=== PATIENT | male | born 1945 | race Caucasian/White ===

== ENCOUNTER 2018-08-21 14:01 | Emergency (ER) | payer OTHER, MEDICAID ==
[~2018-08-21] VITALS: Ht 167.6 cm; Wt 81.6 kg
[2018-08-21 14:13] VITALS: BP 159/70
--- NOTE | 2018-08-21 14:13 | NUR ---
Patient ambulated to bed 3 with family. RN evaluating patient at bedside.
--- NOTE | 2018-08-21 14:20 | NUR ---
C/O FEELING WEAK, N/V STARTING TODAY. PT APPEARS PALE AND STATES HE HASN'T EATEN SINCE LAST NIGHT. 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 NO FACIAL DROOP NOTED. PT ALERT AND ANSWERING QUESTIONS APPROPRIATELY. DENIES FEVER & DIARRHEA. BOWEL SOUNDS ACTIVE X4, ABDOMEN SOFT,FLAT, NON TENDER. LBM 08/20/18. BED IN LOW POSITION, SON AT BEDSIDE.
--- NOTE | 2018-08-21 14:40 | NUR ---
PT PLACED ON BOOM MAN
[2018-08-21] MEDS ORDERED: MECLIZINE 25 MG TAB PO ONE (16:15)
--- NOTE | 2018-08-21 16:59 | NUR ---
PT RESTING IN BED, NO NEW NEEDS AT THIS TIME
[2018-08-21 17:07] VITALS: BP 135/71
--- NOTE | 2018-08-21 17:08 | NUR ---
Patient discharged with v/s stable. Written and verbal after care instructions given and explained. Patient alert, oriented and verbalized understanding of instructions. Ambulatory with steady gait. All questions addressed prior to discharge. ID band removed. Patient advised to follow up with PMD. Rx of Antivert given. Patient educated on indication of medication including possible reaction and side effects. Opportunity to ask questions provided and answered.
== END 2018-08-21 17:08 | disposition home or self-care (01) ==
LOC: MED 14:01
DX: H81.10 Benign paroxysmal vertigo, unspecified ear (principal)
CPT/HCPCS: 81002; 99283; J8597; 99282